=== PATIENT | male | born 1970 | race Native Hawaiian/Other Pacific Islander ===

== ENCOUNTER 2022-03-14 09:53 | Emergency (ER) | payer SELFPAY ==
[~2022-03-14] VITALS: Ht 170.2 cm; Wt 111.2 kg
[2022-03-14 11:16] LABS: RSV AMPLIFICATION NEGATIVE (NEGATIVE)
[2022-03-14] MEDS ORDERED: AMOX875T2 PO (12:52)
[2022-03-14] MEDS ORDERED: BENZ200C70 PO (12:52)
[2022-03-14 13:11] VITALS: BP 111/74
== END 2022-03-14 13:13 | disposition home or self-care (01) ==
LOC: M ED 09:53
DX: J06.9 Acute upper respiratory infection, unspecified (principal); Z79.899 Other long term (current) drug therapy